=== PATIENT | female | born 1995 | race Caucasian/White ===

== ENCOUNTER 2020-03-22 01:22 | Inpatient (IN) ==
[2020-03-22] MEDS ORDERED: Metoclopramide 10 MG/2 ML VIAL IVP PRN ×2 (03:11→09:26)
[2020-03-22] MEDS ORDERED: Famotidine 20 MG/2 ML VIAL IVP PRN (03:11)
[2020-03-22] MEDS ORDERED: Ringers Solution, Lactated 1,000 ML IVC SCH (03:15)
[2020-03-22 03:52] LABS: Amphetamine Screen,Urine Negative ng/mL (Cutoff=1000); Barbiturate Screen,Urine Negative ng/mL (Cutoff=200); Benzodiazepines Screen,Urine Negative ng/mL (Cutoff=200); Cannabinoid Screen,Urine Negative ng/mL (Cutoff = 50); Cocaine Screen,Urine Negative ng/mL (Cutoff= 300); Opiate Screen,Urine Negative ng/mL (Cutoff=300); Phencyclidine Screen,Urine Negative ng/mL (Cutoff=25)
[2020-03-22] MEDS ORDERED: Azithromycin 500 MG in 0.9 % Sodium Chloride 250 ML IVPB ONE (03:57)
[2020-03-22] MEDS ORDERED: Naloxone 0.4 MG/ML INJ IVP PRN (03:57)
[2020-03-22] MEDS ORDERED: Ondansetron 4 MG/2 ML VIAL IVP PRN ×2 (03:57→09:26)
[2020-03-22] MEDS ORDERED: CeFAZolin 2,000 MG/50 ML BAG IVPB ONE (03:57)
[2020-03-22 04:08] LABS: Basophils % 0.3 %; Hemoglobin 11.8 g/dL (11.5-15.4); Mean Corpuscular Volume 93.2 fL (83.0-100.0)
[2020-03-22 04:10] LABS: Eosinophils # 0.1 K/mcL (0.0-0.6); Eosinophils % 0.8 %; Hematocrit 36.8 % (35.3-44.9); Immature Granulocytes % 0.6 % (0-4); Immature Platelets 23.9 % (1.1-6.1); Lymphocytes % 21.5 %; Mean Corpuscular HGB Conc 32.1 g/dL (31.6-35.5); Mean Corpuscular Hemoglobin 29.9 pg (28.0-33.3); Mean Platelet Volume 13.8 fL (9.4-12.4); Monocytes # 1.3 K/mcL (0.0-1.3); Monocytes % 9.1 %; Neutrophils # 9.9 K/mcL (1.6-8.9); Platelet Count 135 K/mcL (140-400); Red Blood Count 3.95 M/mcL (3.82-4.97); Segmented Neutrophils % 67.7 %; White Blood Count 14.6 K/mcL (4.3-11.1)
[2020-03-22 04:15] LABS: Lymphocytes # 3.1 K/mcL (0.6-4.6)
[2020-03-22 05:10] LABS: Adenovirus Not Detected (Not Detect); Coronavirus 229E Not Detected (Not Detect); Coronavirus HKU1 Not Detected (Not Detect); Coronavirus NL63 Not Detected (Not Detect); Coronavirus OC43 Not Detected (Not Detect)
[2020-03-22 05:11] LABS: Bordetella Pertussis Not Detected (Not Detect); Chlamydophila pneumoniae Not Detected (Not Detect); Human Metapneumovirus Not Detected (Not Detect); Human Rhinovirus/Enterovirus Not Detected (Not Detect); Influenza A Subtype 2009 H1 Not Detected (Not Detect); Influenza B Not Detected (Not Detect); Mycoplasma pneumoniae Not Detected (Not Detect); Parainfluenza Virus 1 Not Detected (Not Detect); Parainfluenza Virus 2 Not Detected (Not Detect); Parainfluenza Virus 3 Not Detected (Not Detect); Parainfluenza Virus 4 Not Detected (Not Detect); Respiratory Syncytial Virus Not Detected (Not Detect); SARS-CoV-2 Not Detected (Not Detect)
[2020-03-22] MEDS ORDERED: EPHEDrine 50 MG/ML VIAL ONE (05:26)
[2020-03-22] MEDS ORDERED: *HR* Midazolam HCl 2 MG/2 ML VIAL ONE (05:26)
[2020-03-22] MEDS ORDERED: *HR* Morphine Sulfate/PF 10 MG/10 ML AMPUL ONE (05:26)
[2020-03-22] MEDS ORDERED: *HR* FentaNYL (PF) 100 MCG/2 ML VIAL ONE (05:26)
[2020-03-22] MEDS ORDERED: Dexamethasone 4 MG/ML VIAL ONE (05:28)
[2020-03-22] MEDS ORDERED: Ondansetron 4 MG/2 ML VIAL ONE (05:28)
[2020-03-22] MEDS ORDERED: Ringers Solution, Lactated 1,000 ML ONE (05:31)
[2020-03-22] MEDS ORDERED: Ketorolac 30 MG/ML VIAL ONE (05:32)
[2020-03-22] MEDS ORDERED: *HR* Oxytocin 10 UNIT/ML VIAL IM ONE (05:58)
[2020-03-22 09:23] LABS: Alanine Aminotransferase 10 Units/L (7-52); Aspartate Amino Transferase 17 Units/L (13-39); BUN/Creatinine Ratio 17 (6-26); Blood Urea Nitrogen 10 mg/dL (6-20); Lactate Dehydrogenase 222 Units/L (140-271); Uric Acid 5.4 mg/dL (2.3-7.6); eGFR For African Americans > 60 (> 60); eGFR For Non-African Americans > 60 (> 60)
[2020-03-22] MEDS ORDERED: Sennosides 8.6 MG TABLET PO PRN (09:26)
[2020-03-22] MEDS ORDERED: *HR* OxyCODONE Immed Rel 5 MG TABLET PO PRN (09:26)
[2020-03-22] MEDS ORDERED: Simethicone 80 MG TAB.CHEW PO PRN (09:26)
[2020-03-22] MEDS ORDERED: Rho Immune Globulin 1,500 UNIT SYRINGE IM ONE (09:26)
[2020-03-22] MEDS ORDERED: Acetaminophen 325 MG TABLET PO PRN (09:26)
[2020-03-22 10:19] LABS: Bilirubin,Urine Negative (Negative); Blood,Urine Negative (Negative); Clarity,Urine Clear (Clear); Color,Urine Light-Yellow (Yellow); Glucose,Urine (UA) Normal (Normal); Ketones,Urine Negative (Negative); Leukocyte Esterase,Urine Negative (Negative); Nitrite,Urine Negative (Negative); Protein,Urine Negative (Neg-Trace); Specific Gravity,Urine 1.015 (1.010-1.025); Urobilinogen,Urine Normal (Normal)
[2020-03-22 10:31] LABS: Protein/Creatinine Ratio,Urine 0.27 mg/mg (0.00-0.20)
[2020-03-22] MEDS: Oxytocin 20 units/ LR 1000 mL 20 UNIT/1,000 ML BAG IVC SCH ×4 (10:31→17:45)
[2020-03-22] MEDS: Prenatal Vit/FA 1 EACH TABLET PO SCH (10:42)
[2020-03-22] MEDS: metroNIDAZOLE 500 MG TABLET PO SCH ×3 (10:43→20:26)
[2020-03-22] MEDS: cephALEXin 500 MG CAPSULE PO SCH ×3 (10:43→20:26)
[2020-03-22] MEDS: Ibuprofen 600 MG TABLET PO PRN ×2 (13:35→22:23)
[2020-03-22] MEDS ORDERED: Loratadine 10 MG TABLET PO SCH (15:21)
[2020-03-22] MEDS: *HR* OxyCODONE/APAP 5/325 TABLET PO PRN (18:36)
[2020-03-23] MEDS: *HR* OxyCODONE/APAP 5/325 TABLET PO PRN ×4 (01:01→19:44)
[2020-03-23] MEDS: Ibuprofen 600 MG TABLET PO PRN ×3 (04:32→22:10)
[2020-03-23 08:56] LABS: Basophils % 0.3 %; Hematocrit 31.6 % (35.3-44.9); Red Cell Distribution Width 13.1 % (11.5-14.5)
[2020-03-23 08:58] LABS: Basophils # 0.1 K/mcL (0.0-0.2); Eosinophils # 0.1 K/mcL (0.0-0.6); Eosinophils % 0.3 %; Hemoglobin 10.2 g/dL (11.5-15.4); Immature Granulocytes % 0.8 % (0-4); Immature Platelets 20.3 % (1.1-6.1); Lymphocytes # 3.4 K/mcL (0.6-4.6); Lymphocytes % 21.6 %; Mean Corpuscular HGB Conc 32.3 g/dL (31.6-35.5); Mean Corpuscular Hemoglobin 30.2 pg (28.0-33.3); Mean Corpuscular Volume 93.5 fL (83.0-100.0); Mean Platelet Volume 13.5 fL (9.4-12.4); Monocytes # 1.4 K/mcL (0.0-1.3); Monocytes % 8.7 %; Neutrophils # 10.7 K/mcL (1.6-8.9); Platelet Count 102 K/mcL (140-400); Red Blood Count 3.38 M/mcL (3.82-4.97); Segmented Neutrophils % 68.3 %; White Blood Count 15.6 K/mcL (4.3-11.1)
[2020-03-23] MEDS ORDERED: Loratadine 10 MG TABLET PO SCH (09:00)
[2020-03-23] MEDS: metroNIDAZOLE 500 MG TABLET PO SCH ×3 (09:17→19:44)
[2020-03-23] MEDS: cephALEXin 500 MG CAPSULE PO SCH ×3 (09:17→19:44)
[2020-03-23] MEDS: Prenatal Vit/FA 1 EACH TABLET PO SCH (09:24)
[2020-03-24] MEDS: *HR* OxyCODONE/APAP 5/325 TABLET PO PRN ×2 (00:35→11:30)
[2020-03-24] MEDS: Ibuprofen 600 MG TABLET PO PRN (06:19)
[2020-03-24] MEDS: Prenatal Vit/FA 1 EACH TABLET PO SCH (07:56)
[2020-03-24 09:31] VITALS: BP 132/82
== END 2020-03-24 12:30 | disposition home or self-care (01) | DRG 788 ==
LOC: 1NENULAB → OBSVTOIN 01:22 → 1NENUOBS 09:20
PROVIDERS: ADMIT Obstetrics & Gynecology; ATTEND Obstetrics & Gynecology